=== PATIENT | male | born 1960 | race Caucasian/White ===

== ENCOUNTER 2023-01-29 14:15 | Inpatient (IN) | payer MEDICAID ==
[~2023-01-29] VITALS: Ht 165.1 cm; Wt 52.4 kg
[2023-01-29 14:29] VITALS: BP_SYST 117; PULSE 68; RESP 18; TEMP 97.5; O2SAT 100
[2023-01-29 15:42] LABS: BASOPHILS % (AUTO) 0.2 % (0.0-2.0); EOSINOPHILS % (AUTO) 0.5 % (0.0-4.0); HEMATOCRIT 28.4 % (36-54); HEMOGLOBIN 9.4 g/dL (14.0-18.0); LYMPHOCYTES # (AUTO) 0.7 K/uL (1.0-5.5); LYMPHOCYTES % (AUTO) 8.5 % (20.5-51.5); MEAN CORPUSCULAR HEMOGLOBIN 29 pg (27-31); MEAN CORPUSCULAR HGB CONC 33 % (32-36); MEAN CORPUSCULAR VOLUME 87 fL (79.0-98.0); MONOCYTES # (AUTO) 0.5 K/uL (0.0-1.0); MONOCYTES % (AUTO) 5.8 % (1.7-9.3); PLATELET COUNT (AUTO) 233 K/uL (130-430); RED BLOOD CELL COUNT(AUTO) 3.25 MIL/uL (4.2-6.2); RED CELL DISTRIBUTION WIDTH 15.7 % (9.0-15.0); WHITE BLOOD COUNT (AUTO) 8.2 K/uL (4.8-10.8)
[2023-01-29 15:49] LABS: CALCIUM 8.5 mg/dL (8.4-11.0); CREATININE 1.22 mg/dL (0.55-1.30); POTASSIUM 4.4 mmol/L (3.5-5.1)
[2023-01-29 15:51] LABS: INR 1.1 (0.80-1.20); PROTHROMBIN TIME 11.4 SECS (9.5-12.5)
[2023-01-29 15:53] LABS: ALBUMIN 2.6 g/dL (3.4-4.8); BILIRUBIN,DIRECT 0.3 mg/dL (0.0-0.3); TOTAL BILIRUBIN 0.5 mg/dL (0.0-1.0); TOTAL PROTEIN, SERUM 6.6 g/dL (6.4-8.3)
[2023-01-29] MEDS ORDERED: FURO-150 PO (19:48)
[2023-01-29] MEDS ORDERED: RIVA20TA PO (19:48)
[2023-01-29] MEDS ORDERED: INSU100V44 (19:48)
[2023-01-29] MEDS ORDERED: ASPI-1393 PO (19:48)
[2023-01-29] MEDS ORDERED: LANS30CA53 PO (19:48)
[2023-01-29] MEDS ORDERED: AMIO200T66 PO (19:48)
[2023-01-29] MEDS ORDERED: ISOS20TA8 PO (19:48)
[2023-01-29] MEDS ORDERED: DILT300T10 PO (19:48)
[2023-01-29] MEDS ORDERED: THIA100T70 PO (19:48)
[2023-01-29] MEDS ORDERED: PSYL575P22 PO (19:48)
[2023-01-29] MEDS ORDERED: TACR1CAP2 PO (19:48)
[2023-01-29] MEDS ORDERED: VITA1CAP PO (19:48)
[2023-01-29] MEDS ORDERED: METO-290 PO (19:48)
[2023-01-29] MEDS ORDERED: METF-379 PO (19:48)
[2023-01-29] MEDS ORDERED: MELA3CAP2 (19:48)
[2023-01-29] MEDS ORDERED: SER25 PO (19:48)
[2023-01-29] MEDS ORDERED: TAMS-11 PO (19:48)
[2023-01-29] MEDS ORDERED: METO25TA3 PO (19:48)
[2023-01-29] MEDS ORDERED: FOLI0.8T42 PO (19:48)
[2023-01-29] MEDS ORDERED: [UNRECOGNIZED DRUG - CODE] PO (19:48)
[2023-01-29] MEDS ORDERED: ASCO500T20 PO (19:48)
[2023-01-29] MEDS ORDERED: XALEYE OP (19:48)
[2023-01-29] MEDS ORDERED: NEU300 PO (19:48)
[2023-01-29] MEDS ORDERED: FAMO20TA8 PO (19:48)
[2023-01-29] MEDS ORDERED: ACETAMINOPHEN 325 MG TABLET ONE (19:58)
[2023-01-29] MEDS: ACETAMINOPHEN 325 MG TABLET GT PRN (20:32)
[2023-01-29] MEDS: predniSONE 5 MG TABLET PO SCH (20:45)
[2023-01-29] MEDS: AMIODARONE HCL 200 MG TABLET PO SCH (20:45)
[2023-01-29] MEDS: LATANOPROST 2.5 ML DROPS (XALATAN) OP SCH (21:00)
[2023-01-29] MEDS ORDERED: GABAPENTIN 300 MG CAPSULE PO SCH (21:00)
[2023-01-29 22:30] VITALS: O2SAT 97
[2023-01-29] MEDS ORDERED: DEXTROSE 50% JECT 50 ML DISP.SYRIN IVP PRN (22:45)
[2023-01-29] MEDS ORDERED: INSULIN REGULAR, HUMAN 100 UNITS/ML, 3 ML VIAL (humuLIN R) SUBCUT PRN (22:45)
[2023-01-29 22:51] VITALS: BP_SYST 140; PULSE 59; RESP 20; TEMP 98.7
[2023-01-29] MEDS ORDERED: PIPERACILLIN/TAZOBACTAM 3.375 GM/VIAL (ZOSYN) IV ONE (23:57)
[2023-01-29] MEDS ORDERED: AZITHROMYCIN 500 MG/VIAL (ZITHROMAX) IV ONE (23:58)
[2023-01-30] VITALS (8 sets, daily range): BP systolic 98–145; PULSE 60–118; RESP 16–20; TEMP 97.6–99; O2SAT 94–100
[2023-01-30] MEDS: PIPERACILLIN/TAZO 3.375/DEX-IS 50 ML IV SCH ×5 (00:45→23:22)
[2023-01-30] MEDS: AZITHROMYCIN 500 MG in NS 250 ML IV SCH ×2 (01:34→21:52)
[2023-01-30] MEDS: METOCLOPRAMIDE HCL 10 MG TABLET PO SCH ×3 (01:42→11:16)
[2023-01-30 07:09] LABS: BASOPHILS % (AUTO) 0.2 % (0.0-2.0); EOSINOPHILS # (AUTO) 0.1 K/uL (0.0-0.4); EOSINOPHILS % (AUTO) 1.2 % (0.0-4.0); HEMATOCRIT 29.7 % (36-54); LYMPHOCYTES # (AUTO) 0.9 K/uL (1.0-5.5); LYMPHOCYTES % (AUTO) 11.7 % (20.5-51.5); MEAN CORPUSCULAR HEMOGLOBIN 29 pg (27-31); MEAN CORPUSCULAR HGB CONC 34 % (32-36); MEAN CORPUSCULAR VOLUME 87 fL (79.0-98.0); MONOCYTES # (AUTO) 0.7 K/uL (0.0-1.0); MONOCYTES % (AUTO) 8.8 % (1.7-9.3); NEUTROPHILS # (AUTO) 5.8 K/uL (1.8-7.7); NEUTROPHILS % (AUTO) 78.1 % (40.0-70.0); PLATELET COUNT (AUTO) 224 K/uL (130-430); RED BLOOD CELL COUNT(AUTO) 3.39 MIL/uL (4.2-6.2); RED CELL DISTRIBUTION WIDTH 15.9 % (9.0-15.0); RETICULOCYTE COUNT 2.2 % (0.5-1.5); WHITE BLOOD COUNT (AUTO) 7.5 K/uL (4.8-10.8)
[2023-01-30 07:20] LABS: ALBUMIN 2.6 g/dL (3.4-4.8); CALCIUM 8.8 mg/dL (8.4-11.0); CREATININE 1.05 mg/dL (0.55-1.30); FREE T4 (FREE THYROXINE) 1.5 ng/dL (0.6-1.6); PHOSPHORUS 4.1 mg/dL (2.7-4.5); POTASSIUM 3.9 mmol/L (3.5-5.1); THYROID STIMULATING HORMONE 3.37 uIu/mL (0.34-4.82); TOTAL BILIRUBIN 0.6 mg/dL (0.0-1.0); TOTAL PROTEIN, SERUM 6.9 g/dL (6.4-8.3)
[2023-01-30 07:49] LABS: TOTAL IRON BIND. CAPACITY 179 ug/dL (250-450)
[2023-01-30] MEDS ORDERED: ASPIRIN 81 MG TABLET(ECOTRIN) PO SCH (09:00)
[2023-01-30] MEDS ORDERED: LANSOPRAZOLE 30 MG CAPSULE.DR PO SCH (09:00)
[2023-01-30] MEDS ORDERED: VITAMIN B COMPLEX 1 CAP/TAB PO SCH (09:00)
[2023-01-30] MEDS ORDERED: ISOSORBIDE DINITRATE 20 MG TABLET (ISORDIL) PO SCH (09:00)
[2023-01-30] MEDS ORDERED: FUROSEMIDE 20 MG TABLET PO SCH (09:00)
[2023-01-30] MEDS ORDERED: NEPHROVITE, (FOLIC ACID/VITAMIN B COMP W-C 1 TAB) PO SCH (09:00)
[2023-01-30] MEDS ORDERED: TAMSULOSIN HCL 0.4 MG CAP PO SCH (09:00)
[2023-01-30] MEDS ORDERED: ASCORBIC ACID 500 MG TABLET PO SCH (09:00)
[2023-01-30] MEDS: LATANOPROST 2.5 ML DROPS (XALATAN) OP SCH ×2 (09:00→21:51)
[2023-01-30] MEDS ORDERED: TACROLIMUS ANHYDROUS 1 MG CAPSULE (PROGRAF) PO SCH (09:00)
[2023-01-30] MEDS ORDERED: METOPROLOL SUCCINATE 25 MG TAB.SR.24H (TOPROL XL) PO SCH (09:00)
[2023-01-30] MEDS ORDERED: FAMOTIDINE 20 MG TABLET PO SCH (09:00)
[2023-01-30] MEDS: DILTIAZEM HCL 300 MG CAP.SR.24H PO SCH (09:57)
[2023-01-30] MEDS: AMIODARONE HCL 200 MG TABLET PO SCH (10:05)
[2023-01-30] MEDS: predniSONE 5 MG TABLET PO SCH (10:05)
[2023-01-30] MEDS: ACETAMINOPHEN 325 MG TABLET GT PRN (13:44)
[2023-01-30] MEDS: SOD FERRIC GLUC COMPLEX/SUC 125 MG in NS 100 ML IV SCH (14:29)
[2023-01-30] MEDS ORDERED: MULTIVIT-MINERALS/FERROUS GLUC 15 ML UDC GT ONE (14:30)
[2023-01-30] MEDS ORDERED: MULTIVITS,CA,MINERALS/IRON/FA 1 TABLET GT ONE (14:30)
[2023-01-30] MEDS ORDERED: AMIODARONE HCL 200 MG TABLET GT SCH (16:47)
[2023-01-30] MEDS ORDERED: ISOSORBIDE DINITRATE 20 MG TABLET (ISORDIL) GT SCH (16:49)
[2023-01-30] MEDS: QUEtiapine FUMARATE 25 MG TABLET GT SCH (17:26)
[2023-01-30] MEDS: METOCLOPRAMIDE HCL 10 MG TABLET GT SCH ×2 (17:26→21:51)
[2023-01-30] MEDS ORDERED: RIVAROXABAN 10 MG TABLET GT SCH (18:00)
[2023-01-30] MEDS: TACROLIMUS ANHYDROUS 1 MG CAPSULE (PROGRAF) GT SCH (21:50)
[2023-01-30] MEDS: GABAPENTIN 300 MG CAPSULE GT SCH (21:50)
[2023-01-31 00:32] VITALS: BP_SYST 143; PULSE 122; RESP 20; TEMP 98.8; O2SAT 96
[2023-01-31] MEDS: PIPERACILLIN/TAZO 3.375/DEX-IS 50 ML IV SCH ×3 (06:01→17:05)
[2023-01-31] MEDS: METOCLOPRAMIDE HCL 10 MG TABLET GT SCH ×4 (06:01→20:35)
[2023-01-31 08:00] VITALS: BP_SYST 142; PULSE 118; RESP 18; TEMP 98.3; O2SAT 99
[2023-01-31] MEDS ORDERED: METOPROLOL TARTRATE 25 MG TABLET GT SCH (09:00)
[2023-01-31] MEDS ORDERED: ASPIRIN 81 MG TAB.CHEW GT SCH (09:00)
[2023-01-31] MEDS: MULTIVITS,CA,MINERALS/IRON/FA 1 TABLET GT SCH (09:02)
[2023-01-31] MEDS: predniSONE 5 MG TABLET GT SCH (09:02)
[2023-01-31] MEDS: ASCORBIC ACID 500 MG TABLET GT SCH (09:02)
[2023-01-31] MEDS: FAMOTIDINE 20 MG TABLET GT SCH (09:02)
[2023-01-31] MEDS: NEPHROVITE, (FOLIC ACID/VITAMIN B COMP W-C 1 TAB) GT SCH (09:02)
[2023-01-31] MEDS: FUROSEMIDE 20 MG TABLET GT SCH (09:03)
[2023-01-31] MEDS: TAMSULOSIN HCL 0.4 MG CAP GT SCH (09:03)
[2023-01-31] MEDS: TACROLIMUS ANHYDROUS 1 MG CAPSULE (PROGRAF) GT SCH ×2 (09:05→20:35)
[2023-01-31] MEDS: LANSOPRAZOLE 30 MG CAPSULE.DR GT SCH (09:05)
[2023-01-31] MEDS: MAGNESIUM OXIDE 400 MG TABLET GT SCH (09:06)
[2023-01-31] MEDS: DILTIAZEM HCL 300 MG CAP.SR.24H PO SCH (09:06)
[2023-01-31] MEDS: VITAMIN B COMPLEX 1 CAP/TAB GT SCH (09:09)
[2023-01-31 09:30] VITALS: O2SAT 99
[2023-01-31] MEDS ORDERED: DIGOXIN 0.5 MG/2 ML AMP IVP ONE ×3 (10:00→22:00)
[2023-01-31 11:34] VITALS: BP_SYST 128; PULSE 127; RESP 19; TEMP 99; O2SAT 100
[2023-01-31] MEDS: METOPROLOL TARTRATE 50 MG TABLET GT SCH ×2 (15:28→22:02)
[2023-01-31] MEDS: SOD FERRIC GLUC COMPLEX/SUC 125 MG in NS 100 ML IV SCH (17:05)
[2023-01-31] MEDS: ACETAMINOPHEN 325 MG TABLET GT PRN (17:05)
[2023-01-31] MEDS: QUEtiapine FUMARATE 25 MG TABLET GT SCH (17:05)
[2023-01-31 17:18] VITALS: BP_SYST 153; PULSE 121; RESP 20; TEMP 98.4; O2SAT 100
[2023-01-31] MEDS: GABAPENTIN 300 MG CAPSULE GT SCH (20:35)
[2023-01-31] MEDS: AMIODARONE HCL 200 MG TABLET GT SCH (20:42)
[2023-01-31] MEDS: AZITHROMYCIN 500 MG in NS 250 ML IV SCH (20:59)
[2023-01-31] MEDS: LATANOPROST 2.5 ML DROPS (XALATAN) OP SCH (20:59)
[2023-01-31 21:00] VITALS: BP_SYST 163; PULSE 120; RESP 20; TEMP 98.2; O2SAT 95
[2023-02-01] VITALS (9 sets, daily range): BP systolic 147–165; PULSE 52–109; RESP 16–20; TEMP 98.4–98.8; O2SAT 95–100
[2023-02-01] MEDS: PIPERACILLIN/TAZO 3.375/DEX-IS 50 ML IV SCH ×4 (00:30→18:00)
[2023-02-01] MEDS: ACETAMINOPHEN 325 MG TABLET GT PRN ×2 (03:34→21:57)
[2023-02-01 06:00] LABS: BASOPHILS % (AUTO) 0.4 % (0.0-2.0); EOSINOPHILS # (AUTO) 0.1 K/uL (0.0-0.4); HEMATOCRIT 31.5 % (36-54); HEMOGLOBIN 10.4 g/dL (14.0-18.0); MEAN CORPUSCULAR HEMOGLOBIN 29 pg (27-31); MEAN CORPUSCULAR HGB CONC 33 % (32-36); MEAN CORPUSCULAR VOLUME 88 fL (79.0-98.0); MONOCYTES # (AUTO) 0.6 K/uL (0.0-1.0); NEUTROPHILS # (AUTO) 5.3 K/uL (1.8-7.7); NEUTROPHILS % (AUTO) 75.6 % (40.0-70.0); PLATELET COUNT (AUTO) 264 K/uL (130-430); RED BLOOD CELL COUNT(AUTO) 3.58 MIL/uL (4.2-6.2); RED CELL DISTRIBUTION WIDTH 15.6 % (9.0-15.0)
[2023-02-01] MEDS: METOCLOPRAMIDE HCL 10 MG TABLET GT SCH ×4 (06:16→20:17)
[2023-02-01] MEDS: METOPROLOL TARTRATE 50 MG TABLET GT SCH (06:17)
[2023-02-01 06:27] LABS: ALBUMIN 2.7 g/dL (3.4-4.8); CALCIUM 9.1 mg/dL (8.4-11.0); CREATININE 1.13 mg/dL (0.55-1.30); POTASSIUM 4.6 mmol/L (3.5-5.1); TOTAL BILIRUBIN 0.5 mg/dL (0.0-1.0); TOTAL PROTEIN, SERUM 7.2 g/dL (6.4-8.3)
[2023-02-01 07:00] LABS: BILIRUBIN,URINE NEGATIVE (NEGATIVE); CLARITY/URINE CLEAR (CLEAR); COLOR,URINE YELLOW (YELLOW); GLUCOSE,URINE NEGATIVE (NEGATIVE); KETONES,URINE NEGATIVE (NEGATIVE); LEUKOCYTE ESTERASE ,URINE NEGATIVE (NEGATIVE); NITRITE, URINE NEGATIVE (NEGATIVE); PH,URINE 7.5 (5.0-8.0); PROTEIN URINE 2+ (NEGATIVE); UROBILINOGEN,URINE 0.2 (0.2-1.0)
[2023-02-01 07:01] LABS: BLOOD, URINE TRACE (NEGATIVE)
[2023-02-01 07:08] LABS: BACTERIA,URINE FEW /HPF (None Seen); MUCUS,URINE 1+ /LPF (None Seen); RBC,URINE 0-3 /HPF (0-3); WBC,URINE 0-3 /HPF (0-3)
[2023-02-01] MEDS: MAGNESIUM OXIDE 400 MG TABLET GT SCH (09:22)
[2023-02-01] MEDS: NEPHROVITE, (FOLIC ACID/VITAMIN B COMP W-C 1 TAB) GT SCH (09:23)
[2023-02-01] MEDS: TAMSULOSIN HCL 0.4 MG CAP GT SCH (09:23)
[2023-02-01] MEDS: FAMOTIDINE 20 MG TABLET GT SCH (09:23)
[2023-02-01] MEDS: MULTIVITS,CA,MINERALS/IRON/FA 1 TABLET GT SCH (09:24)
[2023-02-01] MEDS: LANSOPRAZOLE 30 MG CAPSULE.DR GT SCH (09:24)
[2023-02-01] MEDS: AMIODARONE HCL 200 MG TABLET GT SCH (09:24)
[2023-02-01] MEDS: VITAMIN B COMPLEX 1 CAP/TAB GT SCH (09:24)
[2023-02-01] MEDS: FUROSEMIDE 20 MG TABLET GT SCH (09:24)
[2023-02-01] MEDS: ASCORBIC ACID 500 MG TABLET GT SCH (09:25)
[2023-02-01] MEDS: predniSONE 5 MG TABLET GT SCH (09:25)
[2023-02-01] MEDS: TACROLIMUS ANHYDROUS 1 MG CAPSULE (PROGRAF) GT SCH ×2 (09:35→20:18)
[2023-02-01] MEDS ORDERED: LOSARTAN POTASSIUM 25 MG TABLET PO ONE (10:00)
[2023-02-01] MEDS ORDERED: RIVA20TA PO ×2 (12:04)
[2023-02-01] MEDS: SOD FERRIC GLUC COMPLEX/SUC 125 MG in NS 100 ML IV SCH (14:16)
[2023-02-01] MEDS ORDERED: cloNIDine HCL 0.2 MG TABLET GT ONE (16:15)
[2023-02-01] MEDS: METOPROLOL TARTRATE 50 MG TABLET PO SCH (20:17)
[2023-02-01] MEDS: GABAPENTIN 300 MG CAPSULE GT SCH (20:18)
[2023-02-01] MEDS: LOSARTAN POTASSIUM 25 MG TABLET PO SCH (20:20)
[2023-02-01] MEDS: LATANOPROST 2.5 ML DROPS (XALATAN) OP SCH (21:00)
[2023-02-01] MEDS: AZITHROMYCIN 500 MG in NS 250 ML IV SCH (21:45)
[2023-02-02] VITALS (7 sets, daily range): BP systolic 148–164; PULSE 60–104; RESP 16–20; TEMP 97.7–97.9; O2SAT 67–100
[2023-02-02] MEDS: cloNIDine HCL 0.2 MG TABLET PO PRN ×4 (01:12→16:26)
[2023-02-02 04:06] LABS: FOLATE (FOLIC ACID) 6.2 ng/mL (>3.0)
[2023-02-02] MEDS: PIPERACILLIN/TAZO 3.375/DEX-IS 50 ML IV SCH ×4 (06:00→17:13)
[2023-02-02] MEDS: METOCLOPRAMIDE HCL 10 MG TABLET GT SCH ×3 (06:29→17:11)
[2023-02-02] MEDS: NEPHROVITE, (FOLIC ACID/VITAMIN B COMP W-C 1 TAB) GT SCH (08:24)
[2023-02-02] MEDS: MULTIVITS,CA,MINERALS/IRON/FA 1 TABLET GT SCH (08:24)
[2023-02-02] MEDS: LANSOPRAZOLE 30 MG CAPSULE.DR GT SCH (08:24)
[2023-02-02] MEDS: FUROSEMIDE 20 MG TABLET GT SCH (08:25)
[2023-02-02] MEDS: TAMSULOSIN HCL 0.4 MG CAP GT SCH (08:25)
[2023-02-02] MEDS: predniSONE 5 MG TABLET GT SCH (08:25)
[2023-02-02] MEDS: LOSARTAN POTASSIUM 25 MG TABLET PO SCH (08:25)
[2023-02-02] MEDS: FAMOTIDINE 20 MG TABLET GT SCH (08:26)
[2023-02-02] MEDS: MAGNESIUM OXIDE 400 MG TABLET GT SCH (08:27)
[2023-02-02] MEDS: ASCORBIC ACID 500 MG TABLET GT SCH (08:27)
[2023-02-02] MEDS: METOPROLOL TARTRATE 50 MG TABLET PO SCH (08:27)
[2023-02-02] MEDS: VITAMIN B COMPLEX 1 CAP/TAB GT SCH (08:28)
[2023-02-02] MEDS: TACROLIMUS ANHYDROUS 1 MG CAPSULE (PROGRAF) GT SCH (08:28)
[2023-02-02] MEDS ORDERED: AMIODARONE HCL 200 MG TABLET PO SCH (09:00)
[2023-02-02] MEDS: SOD FERRIC GLUC COMPLEX/SUC 125 MG in NS 100 ML IV SCH (15:00)
[2023-02-02] MEDS ORDERED: LORazepam 1 MG TABLET PO ONE (15:45)
[2023-02-02] MEDS ORDERED: RIVA20TA PO (16:30)
[2023-02-02] MEDS ORDERED: amLODIPine BESYLATE 10 MG TABLET PO ONE (16:30)
[2023-02-02] MEDS ORDERED: LORazepam 2 MG/ML VIAL IVP ONE ×2 (16:30→17:30)
[2023-02-02] MEDS: ACETAMINOPHEN 325 MG TABLET GT PRN (17:12)
[2023-02-02] MEDS ORDERED: QUEtiapine FUMARATE 25 MG TABLET GT SCH (18:00)
[2023-02-02] MEDS ORDERED: LORazepam 1 MG TABLET PO SCH (21:00)
[2023-02-03 01:38] VITALS: BP_SYST 131; PULSE 59; RESP 16; TEMP 97.6; O2SAT 96
[2023-02-03] MEDS: cloNIDine HCL 0.2 MG TABLET PO PRN (04:59)
[2023-02-03] MEDS ORDERED: amLODIPine BESYLATE 10 MG TABLET PO SCH (09:00)
== END 2023-02-03 05:15 | DRG 143 ==
LOC: SED 14:15 → STU 18:15
PROVIDERS: ADMIT Internal Medicine; ATTEND Internal Medicine
PROC: 0BJ08ZZ Inspection of Tracheobronchial Tree, Via Natural or Artificial Opening Endoscopic (ICD-10-PCS; principal; 2023-01-30)
DX: J95.01 Hemorrhage from tracheostomy stoma (principal); I50.41 Acute combined systolic (congestive) and diastolic (congestive) heart failure; D84.821 Immunodeficiency due to drugs; E44.0 Moderate protein-calorie malnutrition; J39.8 Other specified diseases of upper respiratory tract; D50.9 Iron deficiency anemia, unspecified; J96.10 Chronic respiratory failure, unspecified whether with hypoxia or hypercapnia; E11.22 Type 2 diabetes mellitus with diabetic chronic kidney disease; I48.0 Paroxysmal atrial fibrillation; D64.9 Anemia, unspecified; I11.0 Hypertensive heart disease with heart failure; R13.12 Dysphagia, oropharyngeal phase; Z94.0 Kidney transplant status; Z79.01 Long term (current) use of anticoagulants; Z79.60 Long term (current) use of unspecified immunomodulators and immunosuppressants; Z68.1 Body mass index [BMI] 19.9 or less, adult
CPT/HCPCS: 36415; 70490; 71045; 71250-TC; 76376; 80048; 80053; 80076; 81000; 81001; 81015; 82607; 82746; 82962; 83540; 83550; 83735; 83880; 84100; 84439; 84443; 84484; 85025; 85044; 85610-TC; 85730-TC; 86886; 86900; 86901; 87081; 94760; 97110-GP; 97530-GP; 99285; G0378; J0456; J1160; J2543; J2916; J7050; J7507; J7512; J8597